=== PATIENT | female | born 1970 | race Caucasian/White ===

== ENCOUNTER → 2020-11-07 | Outpatient (CLI) | payer OTHER ==
[~2020-11-07] MED LIST: CONTRAST GIVEN. MC PRN; GADOTERATE 5 MMOL/10ML VIAL. IVP ONE; IOHEXOL 300 MG/ML 50 ML VIAL. IJ ONE
--- NOTE | 2020-11-07 11:52 | RAD ---
EXAM: Fluoroscopically guided right shoulder injection for MR arthrography. HISTORY: 49-year-old woman with right shoulder pain.. TECHNIQUE: The risks and benefits of the procedure were discussed with the patient and written and ve rbal consent were obtained. A time out procedure was performed. Fluoroscopic imaging of the right shoulder was performed. The overlying skin was sterilely prepped an d infiltrated with 1% lidocaine for local anesthesia. A 22-gauge spinal needle was then advanced into the joint space under fluoroscopic guidance. Intra-articular positioning positioning was confirmed w ith a small injection of iodinated contrast. 12 mL of 1:200 dilution gadolinium contrast with saline and iodinated contrast was injected under fluoroscopic control. Instrumentation was withdrawn and a sterile dressing placed. There were no immediate complications. The patient was transferred to the MR suite for additional imaging. Fluoroscopy time 1.3 minutes. 2 images were obtained. Refer to the MR report for additional detail. IMPRESSION: Successful fluoroscopically guided right shoulder injection for MR arthrography. Please r efer to the separate MR report for additional detail. Electronically signed by: Chelita Brush MD (11/07/2020 11:50 AM) [id number]
--- NOTE | 2020-11-07 15:20 | RAD ---
STUDY: MRI arthrogram of the right shoulder INDICATION: Persistent right shoulder pain for the past 6 months. No known injury. COMPARISON: Right shoulder radiographs 10/18/2020 TECHNIQUE: Multiplanar MR imaging of the right shoulder performed after the intra-articular injection of contrast material. The injection portion of the procedure is detailed in a separate report. FINDINGS: AC joint: Mild AC joint arthrosis. Trace fluid within the subacromial subdeltoid bursa is favored mos tly injection related when correlating with the injection images. Rotator cuff: T1 more so than T2 signal elevation within the supraspinatus tendon substance. On the c oronal T2 sequence the articular sided fibers are unremarkable and this too is favored injection rela ginger. Collectively no rotator cuff tear is identified or advanced tendinosis. Rotator cuff muscular bu lk and signal is normal. Labrum: SLAP tear extending to the posterior/superior aspect of the labrum, reference images 6 throug h 8 series 5. Long head biceps tendon: Intact and normally located. Cartilage: Intact. Bones: Marrow signal is within normal limits. Miscellaneous: Prominent axillary lymph node, image 5 series 7 measuring approximately 1.4 cm short a xis. The cortex is thickened up to 0.4 cm. An adjacent axillary lymph node on image 4 series 8 measu res 1 cm short axis. Additional axillary lymph nodes are subcentimeter in size. Impression: 1. Signal heterogeneity within the supraspinatus is favored iatrogenic from the injection. No rotator cuff tear is identified and muscular bulk and signal is normal. 2. SLAP tear extending to the posterior/superior aspect of the labrum. 3. Somewhat supernumerary axillary lymph nodes with two lymph nodes meeting pathologic criteria based on size, one measuring 1.4 cm and the other 1 cm short axis. The additional lymph nodes measure sub centimeter in size. The etiology is uncertain and these may be reactive though a malignant process is not able to be excluded. If not recently performed, mammography is recommended as is a CBC. If unrev ealing consider eventual CT of the chest to assess for stability. Electronically signed by: GALILEA RUSSELL MD (11/07/2020 3:17 PM) [id number]
== END | disposition home or self-care (01) ==
LOC: RAD 08:25
PROVIDERS: ATTEND Orthopaedic Surgery
DX: M25.511 Pain in right shoulder (principal); S43.431A Superior glenoid labrum lesion of right shoulder, initial encounter; Z88.5 Allergy status to narcotic agent; Z88.1 Allergy status to other antibiotic agents; X58.XXXA Exposure to other specified factors, initial encounter; Y93.89 Activity, other specified; Y92.89 Other specified places as the place of occurrence of the external cause; Y99.8 Other external cause status
CPT/HCPCS: 23350; 73222; 77002; A9575; Q9967; 73040

== ENCOUNTER → 2020-12-27 | Outpatient (CLI) | payer OTHER ==
[~2020-12-27] MED LIST changes: +ATOR20TA58 PO; -CONTRAST GIVEN. MC PRN; +ESTR-113 PO; -GADOTERATE 5 MMOL/10ML VIAL. IVP ONE; -IOHEXOL 300 MG/ML 50 ML VIAL. IJ ONE; +LEXAPRO20 MG PO; +OXYC1TAB19 PO; +PROG100C10 PO
== END ==
LOC: LAB 08:12
PROVIDERS: ATTEND Orthopaedic Surgery
DX: Z01.812 Encounter for preprocedural laboratory examination (principal); S43.431A Superior glenoid labrum lesion of right shoulder, initial encounter; Z20.822 Contact with and (suspected) exposure to COVID-19; X58.XXXA Exposure to other specified factors, initial encounter; Y93.89 Activity, other specified; Y92.89 Other specified places as the place of occurrence of the external cause; Y99.8 Other external cause status
CPT/HCPCS: U0003

== ENCOUNTER 2020-12-29 07:03 | Day surgery (SDC) | payer OTHER ==
[~2020-12-29] VITALS: Ht 170.2 cm; Wt 65.3 kg
[~2020-12-29 07:03] MED LIST changes: +BUPIVACAINE-EPI 0.5% 30 ML VIAL KIT. ONE; +HYDROmorphone 2 MG/ML VIAL IVP PRN; +IV RINGERS,LACTATED 1000ML 1,000 ML IV SCH; +LIDOCAINE 1% PF 2 ML VIAL. ONE; +MORPHINE SULFATE 2 MG/ML VIAL. IVP PRN; -OXYC1TAB19 PO; +PROCHLORPERAZINE 10 MG/2 ML VIAL. IVP PRN; +ceFAZolin SODIUM IV Push 1 GM VIAL. IVP PRN; +fentaNYL PF VIAL 100 MCG/2 ML VIAL IVP PRN
[2020-12-29] MEDS ORDERED: SCOPOLAMINE 1.5MG PATCH. TD ONE ×2 (07:21→07:45)
[2020-12-29] MEDS ORDERED: MIDAZOLAM HCL/PF 2 MG/2 ML VIAL. ONE ×2 (07:48→07:59)
[2020-12-29] MEDS ORDERED: ONDANSETRON PF 4 MG/2 ML VIAL. ONE (08:04)
[2020-12-29] MEDS ORDERED: SEVOFLURANE 61 TO 120 MINUTES. IH ONE (08:04)
[2020-12-29] MEDS ORDERED: PROPOFOL 10 MG/ML (20ML) VIAL. IV ONE (08:04)
[2020-12-29] MEDS ORDERED: DEXAMETHASONE SOD PHOS 4 MG/ML VIAL ONE (08:04)
[2020-12-29] MEDS ORDERED: LIDOCAINE 2% PF 5 ML VIAL. ONE (08:04)
[2020-12-29] MEDS ORDERED: KETOROLAC 30 MG/ML VIAL. ONE (08:04)
[2020-12-29] MEDS ORDERED: EPINEPHrine VIAL 30 MG/30 ML VIAL ONE (08:17)
[2020-12-29] MEDS ORDERED: oxyCODONE/APAP 7.5/325 1 TAB TABLET PO ONE (10:00)
[2020-12-29] MEDS ORDERED: OXYC1TAB19 PO (10:11)
--- NOTE | 2020-12-29 10:13 | DISCH ---
DISCHARGE INSTRUCTIONS Condition on Discharge Condition on Discharge: Stable Activity After Discharge Activity Instructions for Disc: Other, see below (May start immediate range of motion as tolerated, physical therapy prescription written and may start that as soon as it can be arranged) Weight Bearing Status after Di: As tolerated Diet after Discharge Diet after Discharge: Regular Wound Incision Care Wound/Incision Care: Ice to area for comfort, Change dressing (Remove dressing in 2 days may then shower no soaking until sutures removed) Community/Resources/Services Services at Discharge: PT EVALUATE & TREAT (May start physical therapy right away with active passive range of motion as tolerated and advancing to strength as tolerated with symptomatic restrictions only) Contacting the after DC Call your doctor for: Concerns you may have Follow-Up Follow up with: Dr. Hull or D[facility] 7 to 10 days postop BETH HULL MD Dec 29, 2020 10:13
[2020-12-29 10:25] VITALS: BP 121/80
--- NOTE | 2020-12-29 17:44 | PDOC4 ---
Operative Note Operative Note Date of surgery: 12/29/2020 Preoperative diagnosis: Right shoulder SLAP tear Postoperative diagnosis: Type I SLAP tear with partial-thickness undersurface supraspinatus tear and severe irritation in the subacromial bursa Operative procedure: Right shoulder arthroscopy debridement of labrum partial- thickness undersurface supraspinatus tear and debridement with subacromial bursa Surgeon: Kurtis Fence Making Machine Operator: Jorden hodges assist Anesthesia: General plus scalene block Estimated blood loss: 5 cc Complications: None Operative indications: Please see my orthopedic clinic note for detailed operative indications and note that she indicates a likely time of injury and onset of symptoms in her shoulder when she was trying to retrieve a water bottle and got her hands caught under a manhole cover and jerked her shoulders freeing her hands. Since around that time she has had right anterior shoulder pain with bicipital irritation findings in the clinic and exacerbation when she tries to do yoga type exercises and this is been persistent despite nonoperative management and she was noted to have a SLAP tear on MRI. I had gone over with her the additional options for nonoperative management which have been unsuccessful and the possibility of surgical evaluation and treatment with potential evaluation of the suspected SLAP tear and perhaps repair versus biceps tenodesis or other appropriate surgical treatments and the possibility of continued pain nonhealing infection nerve or blood vessel damage medical or other anesthetic complications among others she agrees to proceed with surgical evaluation and treatment Operative text: Patient was identified procedure verified patient placed in the supine position on the operating table. After adequate amounts of general anesthesia plus a pre-existing scalene block were obtained she was placed decubitus right side up all bony promises were well-padded the right shoulder was examined under anesthesia found to have full range of motion and no instability. Right shoulder was then prepped and draped in standard sterile fashion with a total of 10 pounds of traction using the arthroscopic arm peacock. After timeout was performed patient procedure identified and verified a standard posterior portal was established an anterior portal established using spinal needle localization and the shoulder joint was systematically examined. She did have a type I SLAP tear with additional labral fraying particularly posterior and anterior inferiorly all of which were debrided back to stable tissue. The biceps anchor was otherwise noted to be intact and there was no evidence of any subluxation or bicipital fraying. She did have a partial thickness undersurface tear of the supraspinatus anteriorly which was debrided back to stable tissue and involved perhaps 15 to 20% of the thickness of the tendon and the rotator cuff footprint was otherwise intact as were the bare area of the humerus and capsuloligamentous structures including the subscapularis insertion. Subacromial space was then entered and she had significant bursal irritation which was cleared to allow visualization. Rotator cuff was irritated but was overall intact on its bursal surface and I saw minimal irritation on the coracoacromial ligament. Shoulder joint was then drained of arthroscopic fluid portals closed with nylon suture sterile dressings were applied she is returned to recovery room in stable condition having tolerated procedure well. Jorden gray was present for the procedure and assisted in patient positioning prepping draping equipment management during the procedure and clos ure and dressings BETH MALDONADO MD Dec 29, 2020 17:44
== END 2020-12-29 11:00 | disposition home or self-care (01) ==
LOC: SURG 07:03
PROVIDERS: ATTEND Orthopaedic Surgery
DX: S43.431A Superior glenoid labrum lesion of right shoulder, initial encounter (principal); E78.00 Pure hypercholesterolemia, unspecified; Z79.899 Other long term (current) drug therapy; Z98.890 Other specified postprocedural states; Z88.5 Allergy status to narcotic agent; Z88.8 Allergy status to other drugs, medicaments and biological substances; Z72.89 Other problems related to lifestyle; X58.XXXA Exposure to other specified factors, initial encounter; Y93.89 Activity, other specified; Y92.89 Other specified places as the place of occurrence of the external cause; Y99.8 Other external cause status
CPT/HCPCS: 29823; 64415; A4565; A4930; J0171; J0690; J1100; J1885; J2250; J2405; J2704; J3010; J3490